=== PATIENT | male | born 1975 | race Caucasian/White ===

== ENCOUNTER → 2019-03-31 | Outpatient (CLI) | payer BC | END | disposition home or self-care (01) | LOC: CFH 08:48 | PROVIDERS: ATTEND Nurse Practitioner Family | DX: S22.42XG Multiple fractures of ribs, left side, subsequent encounter for fracture with delayed healing (principal); S32.008A Other fracture of unspecified lumbar vertebra, initial encounter for closed fracture; S27.329D Contusion of lung, unspecified, subsequent encounter; V29.9XXD Motorcycle rider (driver) (passenger) injured in unspecified traffic accident, subsequent encounter | CPT/HCPCS: 71250; 72131; 74150 ==